=== PATIENT | male | born 1995 | race Caucasian/White ===

== ENCOUNTER 2016-12-27 20:09 | Emergency (ER) | payer BC ==
[~2016-12-27] VITALS: Ht 182.9 cm; Wt 83.8 kg
--- OUTSIDE RECORDS SUMMARY | 2016-12-27 20:14 | XMS REPORT | Continuity of Care Document ---
Author Author [facility] Organization [facility] Address Unknown Phone Unavailable Allergies Medications Problems Procedures Results Encounters ACCT No. Visit Date/Time Discharge Status Pt. Type Provider Facility Loc./Unit Complaint [id number] 12/09/2013 18:50:00 12/09/2013 23 :59:59 CLS Outpatient
[2016-12-27 21:12] VITALS: BP 156/82; PULSE 61; RESP 15; TEMP 99; O2SAT 99; Ht 182.9 cm; Wt 83.8 kg
--- NOTE | 2016-12-27 21:55 | ERPDOC ---
Departure Disposition Decision Date: Dec 27, 2016 Disposition Decision Time: 21:55 Disposition: 01 DISCHARGED HOME, SELF-CARE Impression Impression Impression: Primary Impression: Impacted cerumen of both ears Severity: Moderate Condition: Improved Seen By: Physician only Referrals: IMANI RUBY MD (Family) Patient Instructions: Cerumen Impaction (ED) Problems/Meds/Labs Reviewed?: Yes Medications reviewed and manag: Yes Additional Instructions: 2 drops of olive oil in each ear, then cover each ear with a small cotton ball until earwax is completely liquefied and removed In repeat 2 drops of olive oil in the ear with cotton ball every 2-4 weeks as needed Tylenol up to 1000 mg 4 times daily as needed for pain Follow up care ordered?: Yes Mental Status: Alert HPI General Chief Complaint: Ear Pain/Injury Stated Complaint: LFT EAR PAIN Time Seen by Provider: 21:43 Source: patient Exam Limitations: no limitations HPI Ear Pain Initial Comments Patient has had sharp left ear pain for the past 2 weeks. Similar to prior episode, when he saw Elisha Davalos, had liquid applied to the ear in the office , and felt better. Patient admits he uses Q-tips, and periodically gets this type of ear pain. For the past 2 weeks the patient has had sharp ear pain in the left, and has not tried any medications, has not seen his primary care provider, and decided to come in tonight because he couldn't hear out of the left ear. Patient is unable to explain why he has not tried any medications or not seen anyone, and why on Friday night he decided that this was an emergency. Occurred At: home Onset: Gradual Severity: moderate Location: Left ear History of prior infection: No Allergies: Coded Allergies: Penicillins (Verified Allergy, Unknown, 12/27/16) Past History Patient Medical History Problem List Updates: Cerumen impaction Surgical History Denies Surgeries Social History Smoking Status: Never smoker Does patient use chewing tobac: No Second Hand Exposure: No Substance Use Type: does not use Alcohol Intake: none Review of Systems Constitutional Constitutional: DENIES: appetite decrease, appetite increase, chills, dizziness , fever, weakness ENMT Ears: pain Hearing: DENIES: hearing loss, tinnitus Balance: DENIES: vertigo Sinuses: DENIES: congestion, pain, rhinorrhea Mouth/Throat: DENIES: change in swallowing, change in voice, hoarsness, painful swallowing, sore throat Cardiovascular Cardiac: DENIES: chest pain, dyspnea on exertion Rhythm/Rate: DENIES: irregular beat, palpitations, tachycardia Vascular: DENIES: pedal edema Pulmonary Respiratory: DENIES: cough, dyspnea, pleuritic chest pain GI Upper Abdomen: DENIES: dysphagia, heartburn/indigestion, nausea, pain, vomiting Lower Abdomen: DENIES: blood in stool, constipation, diarrhea, pain General: DENIES: burning, dysuria, frequency, pain, urgency Musculoskeletal General: DENIES: cramps, joint pain, joint swelling, pain, weakness Integumentary Skin: DENIES: rash, sores Neurological General: DENIES: headache, numbness, tingling, vertigo, weakness Exam General General Nourishment: well nourished, well developed, appears stated age, no acute distress General Body Habitus: well groomed Vital Signs: RN Vital Signs have been reviewed: Yes, Temperature: 99.0, Source : Oral, Heart Rate: 61, Respiratory Rate: 15, BP: 156/82, Pulse Oximetry: 99 Height (Feet): 6 Height (Inches): 0 [place] Ear Pain Comments External ears are normal, nose is normal without evidence of nasal swelling, drainage, or erythema. Left ear canal is clear, TM does show hard room and impaction lying firmly against the TM. Right canal is moderately filled with significant amount of soft cerumen. She has no lymphadenopathy, no bulging of the membranes, or fluid is visualized behind either membrane. Neurologic RN Documented GCS Eye Opening: Verbal: Motor: Total: Progress Results/Orders Orders Procedure Category Date Status Time Acetaminophen PHA 12/27/16 In Process (Tylenol Extra 22:00 Medications Current ED Medications Acetaminophen (Tylenol Extra Strength) 1,000 mg O ONCE PO ; Start 12/27/16 at 22:00; Stop 12/27/16 at 22:01 Progress Progress Patient is given Tylenol in the ER per his request, and instructed to use olive oil to the ears bilaterally for the next week to soften and liquefied cerumen. JESUS RAMIREZ MD Dec 27, 2016 21:55
[2016-12-27] MEDS ORDERED: ACETAMINOPHEN 500 MG TABLET PO ONE (22:00)
--- OUTSIDE RECORDS SUMMARY | 2016-12-27 22:06 | XMS REPORT | Continuity of Care Document ---
Author Author [facility] Organization [facility] Address Unknown Phone Unavailable Allergies Medications Problems Procedures Results Encounters ACCT No. Visit Date/Time Discharge Status Pt. Type Provider Facility Loc./Unit Complaint [id number] 12/09/2013 18:50:00 12/09/2013 23 :59:59 CLS Outpatient
== END 2016-12-27 22:33 | disposition home or self-care (01) ==
LOC: ED 20:09
DX: H61.23 Impacted cerumen, bilateral (principal)

== ENCOUNTER 2017-03-01 11:13 | Emergency (ER) | payer BC ==
[~2017-03-01] VITALS: Ht 180.3 cm; Wt 78.9 kg
[~2017-03-01 11:13] MED LIST: NO DAILY MEDICATIONS
[2017-03-01 11:17] VITALS: Ht 180.3 cm; Wt 78.9 kg
--- OUTSIDE RECORDS SUMMARY | 2017-03-01 11:17 | XMS REPORT | Continuity of Care Document ---
Author Author [facility] Organization [facility] Address Unknown Phone Unavailable Allergies Medications Problems Procedures Results Encounters ACCT No. Visit Date/Time Discharge Status Pt. Type Provider Facility Loc./Unit Complaint [id number] 12/09/2013 18:50:00 12/09/2013 23 :59:59 CLS Outpatient
[2017-03-01] MEDS ORDERED: GUAI120015 PO (11:31)
--- OUTSIDE RECORDS SUMMARY | 2017-03-01 11:33 | XMS REPORT | Continuity of Care Document ---
Author Author [facility] Organization [facility] Address Unknown Phone Unavailable Allergies Medications Problems Procedures Results Encounters ACCT No. Visit Date/Time Discharge Status Pt. Type Provider Facility Loc./Unit Complaint [id number] 12/09/2013 18:50:00 12/09/2013 23 :59:59 CLS Outpatient
--- OUTSIDE RECORDS SUMMARY | 2017-03-01 11:33 | XMS REPORT | Continuity of Care Document ---
Author Author [facility] Organization [facility] Address Unknown Phone Unavailable Care Team Providers Care Eye Care Professional Name Role Phone AALIYAH CARBAJAL Primary Care Physician [phone] Insurance Providers Guarantor Skyler Hsu Jr Address [address] [place] [phone] Email DENIED12-27-16 [facility] Policy Number [id number] Subscriber's Name Skyler Hsu Sr Relationship 19 Child Group Number [id number] Effective Date 13 Expiration Date 14 Chief Complaint and Reason for Visit Chief Complaint Cough,Fever,Flu,URI Reason for Visit Tachycardia [id number] Problems Active Problems Medical Problem Onset Date Status Cerumen impaction Unknown Past Problems Medical Problem Onset Date Cough in adult patient Unknown Impacted cerumen of both ears Unknown Tachycardia Unknown Medications Current Home Medications Medication Dose Units Route Directions Days Qty Instructions Start Date No Daily Medications 03/01/17 Social History No social history. Hospital Discharge Instructions No hospital discharge instructions. Plan of Care Discharge Date 03/01/17 11:28am Disposition 01 DISCHARGED HOME, SELF-CARE Condition at Discharge Stable Instructions/Education Provided Acute Cough (ED) Prescriptions See Medication Section Referrals AALIYAH CARBAJAL Address: [address] [place] [phone] IMANI RUBY MD Address: [address] [place] [phone] Additional Instructions/Education Go immediately to the ER for further evaluation and treatment. Functional Status No functional status results. Allergies, Adverse Reactions, Alerts Allergen Type Severity Reaction Status Last Updated Penicillin Allergy Unknown Active 03/01/17 Immunizations Query Response on File Recorded Date/Time DTaP Vaccine History UP TO DATE 03/01/17 10:44am Influenza Vaccine Hx NO 03/01/17 10:44am Vital Signs Acute Vital Signs Vital Response Date/Time Temperature (Fahrenheit) 98.3 deg F (96.8 - 99.1) 03/01/2017 10:42am Temperature (Calculated Celsius) 36.57023 degrees C (36.0 - 37.3) 03/01/2017 10:42am Pulse Rate (adult) 120 bpm (60 - 100) 03/01/2017 10:42am Respiratory Rate 15 breaths/min (10 - 20) 12/27/2016 9:12pm O2 Sat by Pulse Oximetry 96 % (90 - 100) 03/01/2017 10:42am Blood Pressure 138/88 mm Hg 03/01/2017 10:42am Height (Feet) 6 feet 12/27/2016 9:12pm Height (Inches) 72.00 inches 03/01/2017 10:42am Weight (Kilograms) 80.200 kg 03/01/2017 10:42am Body Mass Index (BMI) 23.0 03/01/2017 10:42am Results No known relevant diagnostic tests, laboratory data and/or discharge summary. Procedures Procedure Status Date Provider(s) Emergency dept visit Completed 12/27/16 Encounters Encounter Location Arrival/Admit Date Discharge/Depart Date Attending Provider Departed Emergency Room [facility] 03/01/17 10:30am 03/01/17 11: 28am PACO DALEY APRN Departed Emergency Room [facility] 12/27/16 8:09pm 12/27/16 10: 33pm JESUS RAMIREZ MD Recent Diagnosis
--- NOTE | 2017-03-01 11:35 | NUR ---
DR DR WALTON AT BEDSIDE.
[2017-03-01] MEDS ORDERED: NORMAL SALINE 1,000 ML IV ONE (11:45)
[2017-03-01] MEDS ORDERED: ALBUTEROL/IPRATROPIUM INHAL. 2.5mg-0.5mg/3ml Neb. AEROSOL ONE (11:45)
--- NOTE | 2017-03-01 11:54 | NUR ---
RT IN ROOM FOR TX.
--- NOTE | 2017-03-01 12:00 | ERPDOC ---
Departure Disposition Decision Date: March 01, 2017 Disposition Decision Time: 13:00 Disposition: 01 DISCHARGED HOME, SELF-CARE Impression Impression Impression: Primary Impression: Pneumonia Pneumonia type: due to unspecified organism Laterality: right Lung location : lower lobe of lung Qualified Codes: J18.1 - Lobar pneumonia, unspecified organism Severity: Moderate Condition: Improved Seen By: Physician only Referrals: AALIYAH CARBAJAL (PCP) IMANI RUBY MD (Family) 2 Days Patient Instructions: Pneumonia (ED) Problems/Meds/Labs Reviewed?: Yes Medications reviewed and manag: Yes Follow up care ordered?: Yes Mental Status: Alert, Oriented Scripts Albuterol Sulfate (Albuterol Sulfate) 2.5 Mg/0.5 Ml Vial.neb 1 VIAL AEROSOL Q4HR for COUGH, #60 VIAL 1 Refill Prov: FLORINA WALTON DO 03/01/17 Promethazine HCl/Codeine (Promethazine-Codeine Syrup) 118 Ml Syrup 5 ML PO Q4H Y for COUGH for 3 Days, #90 ML 0 Refills Prov: FLORINA WALTON DO 03/01/17 Azithromycin (Azithromycin) 250 Mg Tablet 1 TAB PO DAILY, #6 TAB TAKE TWO TABLETS ON DAY ONE, THEN ONE TABLET DAILY UNTIL ALL TAKEN. Prov: FLORINA WALTON DO 03/01/17 HPI - Cough/URI General Chief Complaint: Cough,Fever,Flu,URI Stated Complaint: COUGH, CP, & HOT FLASHES Time Seen by Provider: 11:26 Source: patient, family Exam Limitations: no limitations HPI - Cough/URI Initial Comments 21-year-old male presents to the emergency department after evaluation at convenient care for further evaluation and treatment. For approximately the past month the patient has been experiencing a cough which is productive of a yellow-green sputum. Patient notes generalized body aches in the thoracic region with coughing only. These are mild. No radiation. Patient has been seen and evaluated by his primary care provider. Patient was given Mucinex and albuterol metered-dose inhaler with mild improvement of symptoms. Symptoms have been persistent in nature since onset. Symptoms had a gradual progression in nature. Patient denies any trauma or injury. No other complaints or associated symptoms. Occurred At: home Onset/Timing: Gradual Allergies: Coded Allergies: Penicillins (Verified Allergy, Unknown, 03/01/17) Past History Past Medical History Pt denies signifigant PMH Surgical History Denies Surgeries Family History Family PMH: FOUND: diabetes Social History Smoking Status: Never smoker Does patient use chewing tobac: No Second Hand Exposure: No Substance Use Type: does not use Alcohol Intake: none Review of Systems Constitutional Constitutional: DENIES: chills, fever Eyes General: DENIES: erythema, exudate Lids/Accessories: DENIES: erythema, swelling Vision: DENIES: acuity, blurring ENMT Ears: DENIES: drainage, erythema Hearing: DENIES: hearing loss Balance: DENIES: ataxia, falling to one side Sinuses: DENIES: congestion, pain Nose: DENIES: nosebleeds, pain Mouth/Throat: DENIES: painful swallowing, sore throat Teeth: DENIES: pain Jaw: DENIES: pain Cardiovascular Cardiac: DENIES: chest pain, dyspnea on exertion Pulmonary Respiratory: cough, sputum, DENIES: dyspnea, pleuritic chest pain GI Upper Abdomen: DENIES: nausea, pain, vomiting Lower Abdomen: DENIES: diarrhea, pain General: DENIES: burning, dysuria, frequency, urgency Musculoskeletal General: DENIES: joint pain, tenderness Neurological General: DENIES: change in strength, headache, numbness, weakness Psychiatric Psychiatric: DENIES: emotional instability, suicidal ideation/attempt Endocrine Endocrine: DENIES: polydipsia, polyphagia Hematologic/Lymphatic Hematologic/Lymphatic: DENIES: frequent nosebleeds, lymphadenopathy Allergic/Immunological Allergic/Immunoligical: DENIES: allergic reactions, hives Physical Exam General General Nourishment: well nourished, well developed, appears stated age, no acute distress, adult General Body Habitus: well groomed Vitals and Pain First Documented Vital Signs Date Time Temp Pulse Resp B/P Pulse Ox O2 Delivery O2 Flow Rate FiO2 03/01/17 11:17 98.7 106 16 144/82 97 Room Air Weight: Kilograms: 78.900 Height (feet): 5 Height (inches): 11.00 Triage Pain Scale: RN VS reviewed by Provider: Yes Normal Exams: Head: Normocephalic w/o trauma Eyes: Pupils are PERRLA w/ EOMI, No scleral icterus, irritation, or foreign bodies noted ENMT: No facial trauma, nasal exudates, pharyngeal erythema, or exudates are noted Dental: No fractured, loose, or missing teeth noted Neck: Full range of motion, without adenopathy, JVD, bruits or thyromegaly Chest/Resp: with good airflow, and symmetry bilaterally CV: Regular rate and rhythm, without murmur or gallop, Pulses 2+ all extremities, capillary refill, <2 seconds all ext., no pedal edema noted Abdomen: Bowel sounds positive, soft, non-tender, non-distended, no hepatosplenomegaly, masses or bruits noted Lymphatic: No lymphadenopathy, or lymphedema noted Musculoskeletal: No tenderness, or deformity noted, good range of motion, all extremities Integumentary: No rashes, hives, or bruising noted, hair and nails, without abnormality Neurologic: Patient is alert, and oriented, cranial nerves, motor/sensory/ cerebellar, exams w/o gross deficits, to observation Psychiatric: Patient exhibits, appropriate attention, emotion and affect Respiratory (brief) Comments Scattered occasional wheeze with adventious sounds in RLL. Differential Diagnoses Differential Diagnoses Considering: Acute Bronchitis, Pneumonia, URI, Viral Syndrome Progress Results/Orders Orders Procedure Category Date Status Time Iv Lock (Ed Only) EDM 03/01/17 Transmitted 11:40 Normal Saline (Normal PHA 03/01/17 Complete Saline Iv) 11:45 Chest, Pa & Lateral RAD 03/01/17 Taken 11:40 EKG EKG 03/01/17 Logged Albuterol/Ipratropium PHA 03/01/17 Complete (Duoneb) 11:45 Azithromycin PHA 03/01/17 Complete (Zithromax 500 Mg) 12:45 Promethazine/Codeine PHA 03/01/17 Complete (Phenergan W/ Codei 12:45 Medications Current ED Medications Sodium Chloride (Normal Saline IV) 1,000 ml @ 999 mls/hr Q1H1M ONCE IV Last administered on 03/01/17 11:51; Start 03/01/17 at 11:45; Stop 03/01/17 at 12:45 ; Status DC Albuterol/ Ipratropium (Duoneb) 3 ml O ONCE AEROSOL Last administered on 11:56; Start 03/01/17 at 11:45; Stop 03/01/17 at 11:46; Status DC Azithromycin (ZITHROMAX 500 mg) 500 mg O ONCE PO Last administered on 12:48; Start 03/01/17 at 12:45; Stop 03/01/17 at 12:46; Status DC Promethazine HCl/ Codeine (Phenergan w/ Codeine) 5 ml O ONCE PO Last administered on 03/01/17t 12:48; Start 03/01/17 at 12:45; Stop 03/01/17 at 12:46 ; Status DC Progress Progress Imaging is discussed in detail with the patient and family and questions are answered. Patient is given 1 L normal saline intravenously. Patient is given a DuoNeb breathing treatment in the emergency department with improvement of symptoms. Patient is given Zithromax 500 mg by mouth times one. He is given promethazine with codeine cough syrup 5 mL by mouth times one. Patient is discharged home in improved condition. He is to follow-up as directed. He is to return to the emergency department if his condition worsens or changes in any manner. Patient and family are in agreement with the current plan of management. Vital signs are unremarkable at time of discharge home. HR was 92 bpm at time of discharge home. EKG EKG : Rate: 60-100 Rhythm: sinus [place]: normal QRS: normal Intervals: normal ST/T: non-specific changes Interpreted by: signing physician Xray Xray : Xray: CXR PA/Lat Interpretation: Abnormal, Interpreted by Me (Early RLL Infiltrate. No other acute processes. ) FLORINA WALTON DO March 01, 2017 12:00
--- NOTE | 2017-03-01 12:07 | NUR ---
XRY PT TO XRY [facility].
--- NOTE | 2017-03-01 12:12 | NUR ---
XRY PT RETURNED.
--- NOTE | 2017-03-01 12:17 | NUR ---
STATUS PT STATES THAT HE FEELS BETTER AFTER THE TX, RESTING CALMLY IN BED. WARM BLANKET PROVIDED FOR COMFORT. MOTHER AT BEDSIDE.
[2017-03-01] MEDS ORDERED: PROMETHAZINE/CODEINE ORAL SYRUP PO ONE (12:45)
[2017-03-01] MEDS ORDERED: AZITHROMYCIN 500 MG TABLET PO ONE (12:45)
--- NOTE | 2017-03-01 12:48 | NUR ---
MED PT GIVEN INSTRUCTION REGARDING AZITHROMYCIN AND PHENERGAN WITH CODEINE. UNDERSTANDING VERBALIZED.
--- NOTE | 2017-03-01 12:48 | NUR ---
Yessy bowens in ED - 03/01/17 at 1252 by MALINDA MED PT GIVEN INSTRUCTION REGARDING AZITHROMYCIN AND PHENERGAN AND CODEINE. UNDERSTANDING VERBALIZED.
--- NOTE | 2017-03-01 12:59 | NUR ---
REPORT GIVEN TO RAUL BALDWIN. CARE ASSUMED.
[2017-03-01] MEDS ORDERED: AZIT250T6 PO (13:10)
[2017-03-01] MEDS ORDERED: ALBU2.5V2 AEROSOL (13:10)
[2017-03-01] MEDS ORDERED: CODE118S2 PO (13:10)
[2017-03-01 13:15] VITALS: BP 140/76; PULSE 92; RESP 14; TEMP 98.9; O2SAT 98
--- NOTE | 2017-03-02 11:35 | DI ---
INDICATION: ITS.REASON: cough PROCEDURE: CHEST 2-VIEWS UPRIGHT (PA \T\ LAT) Encounter: Initial COMPARISON: None FINDINGS: The lungs are clear without evidence of focal abnormal airspace opacity. There is no pleural effusion or pneumothorax. The heart size, mediastinal contours and pulmonary vascularity are within normal limits. There is no significant skeletal abnormality. IMPRESSION: No acute cardiopulmonary disease. .
== END 2017-03-01 13:15 | disposition home or self-care (01) ==
LOC: ED 11:13
DX: J18.1 Lobar pneumonia, unspecified organism (principal)
CPT/HCPCS: 71020; 93005; 94640; 96360; 99283; J7030; Q0144